=== PATIENT | female | born 1990 | race American Indian/Alaskan Native ===

== ENCOUNTER 2017-05-17 11:00 | Inpatient (IN) | payer BC, MEDICAID ==
[2017-05-17] MEDS ORDERED: INFUVITE 10 ML in D5LR 1,000 ML IV ONE ×2 (12:45→20:00)
[2017-05-17] MEDS ORDERED: LACTATED RINGERS 1,000 ML IV ONE (12:45)
[2017-05-17] MEDS ORDERED: PHENERGAN PR PRN (12:50)
[2017-05-17] MEDS: REGLAN IV SCH ×2 (13:27→19:38)
--- NOTE | 2017-05-17 14:13 | History and Physical Report ---
History of Present Illness Date of examination: 05/17/17 Date of admission: 05/17/17 11:35 History of present illness: 27 yo LMP EDC 01/02/17 @ 7.1 weeks presented to office for routine new patient visit and voiced experiencing severe nausea and vomiting for 3 weeks. Unable to tolerate any solids or liquids by mouth for 3 weeks. Experiencing vertigo and fatigue. Has tried OTC medications and natural remedies including peppermint, derek, and Benadryl without resolution or lapse in severity of symptoms. Triaged for above 05/12/17 @ [facility], given IV hydration and Reglan. Sent home with Reglan Prescription but medication did not relieve c/o. Given Rx for Zofran at previous OB, but after internet research on potential side effects, patient felt risk outweighed benefits of trying medication. Also voiced 7lb weight loss. 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 Social history: no significant social history, single, lives with family - Obstetrical History Expected Date of Delivery: 01/02/18 Actual Gestation: 7 Week(s) 1 Day(s) : 2 Para: 0 Induced : 1 Medications and Allergies Allergies Allergy/AdvReac Type Severity Reaction Status Date / Time hydrocodone Allergy Anaphylaxis Verified 10/13/15 23:28 Active Meds: Active Medications Multivitamins/Minerals 10 ml/ (Dextrose/Lactated Ringer's) 1,010 mls @ 125 mls/ hr IV DAILY ONE Stop: 05/17/17 20:49 Metoclopramide HCl (Reglan) 10 mg IV Q6H BERNIE Last Admin: 05/17/17 13:27 Dose: 10 mg Promethazine HCl (Phenergan) 25 mg [place] Q6H PRN PRN Reason: Nausea And Vomiting Review of Systems Constitutional: weight loss (7 lbs in 3 weeks), anorexia, fatigue, weakness, malaise, poor appetite Eyes: deferred Ears, nose, mouth and throat: deferred Breasts: normal Gastrointestinal: nausea, vomiting, loss of appetite, no abdominal pain Genitourinary: normal appearance, no vaginal bleeding, no vaginal discharge, no leakage of fluid, no dysuria, no pelvic pain, no genital sores Rectal Exam: deferred - Vital Signs Vital signs: Vital Signs Temp Pulse Resp BP Pulse Ox 98.9 F 93 H 18 127/72 100 05/17/17 12:00 05/17/17 12:00 05/17/17 12:00 05/17/17 12:00 05/17/17 12:00 Temp Pulse Resp BP Pulse Ox 98.9 F 93 H 18 127/72 100 05/17/17 12:00 05/17/17 12:00 05/17/17 12:00 05/17/17 12:00 05/17/17 12:00 - Physical Exam Breasts: Positive: normal Abdomen: Positive: normal appearance, soft. Negative: distention Genitourinary (Female): Positive: normal external genitalia, normal perenium Vagina: Positive: normal moisture - Obstetrical FHR comments: U/S 05/13/17 at [facility] documented at single viable IUP at 6.4 weeks. FHT's 118. No subchorionic hemorrhage noted. Results Result Diagrams: 05/17/17 13:22 All other labs normal. Assessment and Plan A: IUP at 7.1 weeks gestation Severe Hyperemesis P: Admit Hydration Antiemetic [facility] consult for reglan pump
[2017-05-17 14:35] LABS: Basophils % (Auto) 0.5 % (0.0-1.8); Eosinophils % (Auto) 0.2 % (0.0-4.3); Mean Corpuscular HGB Conc 30 % (30-34); Platelet Count 380 K/mm3 (140-440); Red Blood Count 4.61 M/mm3 (3.65-5.03); White Blood Count 8.7 K/mm3 (4.5-11.0)
[2017-05-17 14:40] LABS: Hematocrit 29.8 % (30.3-42.9); Hemoglobin 8.8 gm/dl (10.1-14.3); Mean Corpuscular Hemoglobin 19 pg (28-32); Mean Corpuscular Volume 65 fl (79-97); Red Cell Distribution Width 21.5 % (13.2-15.2)
[2017-05-17 15:23] LABS: HIV-1 Antigen p24 Non React (Non React); HIVR-1/2 Ab Non React (Non React)
[2017-05-17 16:54] LABS: Urine Drugs of Abuse Note Disclamer
[2017-05-17 17:05] LABS: Bilirubin,Urine NEG (Negative); Blood,Urine NEG (Negative); Ketones,Urine 80 mg/dL (Negative); Leukocyte Esterase,Urine TR (Negative); Mucus,Urine 3+ /HPF; Nitrite,Urine NEG (Negative); Urobilinogen,Urine < 2.0 mg/dL (<2.0)
[2017-05-17] MEDS: D5LR 1,000 ML IV SCH (23:45)
[2017-05-18] MEDS: REGLAN IV SCH ×3 (01:40→14:47)
[2017-05-18] MEDS: D5LR 1,000 ML IV SCH ×3 (07:35→15:45)
--- NOTE | 2017-05-18 09:06 | Progress Note ---
Assessment and Plan A/P HD#1 Hyperemesis Gravidarum CMP today continue antiemetics advance diet as tolerated Subjective - Subjective Date of service: 05/18/17 Principal diagnosis: Hyperemesis gravidarum Patient reports: no new complaints, no loss of fluid, no vaginal bleeding Objective - Vital Signs Vital Signs: Vital Signs - 12hr 05/18/17 05/18/17 05/18/17 00:55 04:15 08:35 Temperature 98.5 F 98.0 F 98.5 F Pulse Rate 87 76 68 Respiratory 19 18 18 Rate Blood Pressure 106/53 116/63 114/60 [Left] - Exam Breasts: deferred Cardiovascular: Regular rate, Normal S1 Lungs: Clear to auscultation, Normal air movement Abdomen: Present: normal appearance, soft, normal bowel sounds. Absent: distention Vulva: both: normal Uterus: Present: normal - Labs Labs: Abnormal Labs 05/17/17 13:22 Hgb 8.8 L Hct 29.8 L MCV 65 L MCH 19 L RDW 21.5 H Nicholas % (Auto) 7.7 H Seg Neutrophils % 73.7 H Laboratory Results - last 24 hr 05/17/17 05/17/17 05/17/17 13:22 13:22 13:22 WBC 8.7 RBC 4.61 Hgb 8.8 L Hct 29.8 L MCV 65 L MCH 19 L MCHC 30 RDW 21.5 H Plt Count 380 Lymph % (Auto) 17.9 Nicholas % (Auto) 7.7 H Eos % (Auto) 0.2 Baso % (Auto) 0.5 Lymph # 1.6 Nicholas # 0.7 Eos # 0.0 Baso # 0.0 Seg Neutrophils % 73.7 H Seg Neutrophils # 6.4 Sickle Cell Screen Negative Urine Color Urine Turbidity Urine pH Ur Specific [place] Urine Protein Urine Glucose (UA) Urine Ketones Urine Blood Urine Nitrite Urine Bilirubin Urine Urobilinogen Ur Leukocyte Esterase Urine WBC (Auto) Urine RBC (Auto) U Epithel Cells (Auto) Urine Mucus Urine Opiates Screen Urine Methadone Screen Ur Barbiturates Screen Ur Phencyclidine Scrn Ur Amphetamines Screen U Benzodiazepines Scrn Urine Cocaine Screen U Marijuana (THC) Screen Drugs of Abuse Note Hep Bs Antigen Non-reactive HIV 1&2 Antibody Rapid Non react HIV P24 Antigen Non react Rubella IgG Antibody Immune Blood Type Antibody Screen 05/17/17 05/17/17 05/17/17 13:24 16:30 16:30 WBC RBC Hgb Hct MCV MCH MCHC RDW Plt Count Lymph % (Auto) Nicholas % (Auto) Eos % (Auto) Baso % (Auto) Lymph # Nicholas # Eos # Baso # Seg Neutrophils % Seg Neutrophils # Sickle Cell Screen Urine Color Yellow Urine Turbidity Clear Urine pH 6.0 Ur Specific [place] 1.026 Urine Protein 30 mg/dl Urine Glucose (UA) Neg Urine Ketones 80 Urine Blood Neg Urine Nitrite Neg Urine Bilirubin Neg Urine Urobilinogen < 2.0 Ur Leukocyte Esterase Tr Urine WBC (Auto) 1.0 Urine RBC (Auto) 2.0 U Epithel Cells (Auto) 5.0 Urine Mucus 3+ Urine Opiates Screen Presumptive negative Urine Methadone Screen Presumptive negative Ur Barbiturates Screen Presumptive negative Ur Phencyclidine Scrn Presumptive negative Ur Amphetamines Screen Presumptive negative U Benzodiazepines Scrn Presumptive negative Urine Cocaine Screen Presumptive negative U Marijuana (THC) Screen Presumptive positive Drugs of Abuse Note Disclamer Hep Bs Antigen HIV 1&2 Antibody Rapid HIV P24 Antigen Rubella IgG Antibody Blood Type B POSITIVE Antibody Screen Negative 05/18/17 01:00 WBC RBC Hgb Hct MCV MCH MCHC RDW Plt Count Lymph % (Auto) Nicholas % (Auto) Eos % (Auto) Baso % (Auto) Lymph # Nicholas # Eos # Baso # Seg Neutrophils % Seg Neutrophils # Sickle Cell Screen Urine Color Urine Turbidity Urine pH Ur Specific [place] Urine Protein Urine Glucose (UA) Urine Ketones Neg Urine Blood Urine Nitrite Urine Bilirubin Urine Urobilinogen Ur Leukocyte Esterase Urine WBC (Auto) Urine RBC (Auto) U Epithel Cells (Auto) Urine Mucus Urine Opiates Screen Urine Methadone Screen Ur Barbiturates Screen Ur Phencyclidine Scrn Ur Amphetamines Screen U Benzodiazepines Scrn Urine Cocaine Screen U Marijuana (THC) Screen Drugs of Abuse Note Hep Bs Antigen HIV 1&2 Antibody Rapid HIV P24 Antigen Rubella IgG Antibody Blood Type Antibody Screen
[2017-05-18] MEDS ORDERED: REGLAN IV SCH (09:30)
[2017-05-18] MEDS ORDERED: ZOFRAN IV PRN (09:30)
[2017-05-18 09:46] LABS: Anion Gap 18 mmol/L; Blood Urea Nitrogen 3 mg/dL (7-17); Carbon Dioxide 21 mmol/L (22-30); Chloride 100.1 mmol/L (98-107); Glucose 168 mg/dL (65-100); Potassium 3.4 mmol/L (3.6-5.0); Sodium 136 mmol/L (137-145)
[2017-05-18] MEDS: PHENERGAN PR SCH ×2 (10:56→14:47)
[2017-05-18] MEDS: PRENATAL VITAMIN PO SCH (10:56)
[2017-05-18] MEDS: TYLENOL PO PRN ×2 (10:57→16:20)
--- NOTE | 2017-05-18 11:11 | Admit Criteria Form ---
Admission Criteria Documentation: HYPEREMESIS GRAVIDARUM Clinical Indications for Admission to Inpatient Care ([place]/check or initial the applicable condition/criteria) Admission is indicated for 1 or more of the following 1)(2)(3)(4)(5) [ ]I. Suspected serious gastrointestinal pathology (eg, acute fatty liver of , pancreatitis) as indicated by 1 or more of the following (6)(7): [ ]a) Significantly elevated serum transaminase or bilirubin (e.g., greater than 10 times normal) [ ]b) Significantly elevated bilirubin (eg greater than 4mg/dL (68 micromoles/L) [ ]c) Significantly elevated serum amylase or lipase (eg greater than 5 times normal) [ ]d) Elevated serum ammonia level [ ]e) Coagulopathy (e.g., elevated PT, PTT) [ ]f) Ascites [ ]g) Encephalopathy [X ]II. Inpatient admission required [A] rather than observation care (See use Hyperemesis Gravidarum: Observation Care as appropriate) because of 1 or more of the following (4)(5)(8): [ ]a) Hemodynamic instability [X ]b) Vomiting that is severe or persistent [ ]c) Dehydration that is severe or persistent [ ]d) Severe electrolyte abnormalities requiring inpatient care [ ]e) Metabolic disorder (e.g., hyperchloremic alkalosis) that is severe or persistent [ ]f) Acute renal failure [ ]g) Significant neurologic findings (e.g., ataxia, nysthagmus, Altered mental status that is severe or persistent) [ ]h) compromise identified [ ]i) Hydatidiformmole identified [ ]j) Other condition, treatment or monitoring requiring inpatient admission Extended stay beyond goal length of stay may be needed for(1)(20): [ ]a) Severe electrolyte disorder that persists [ ]b) Malnutrition(10) [ ]c) Acute fatty liver of (6)(7) [ ]d) Hydatidiform mole (2) [ ]e) Wernicke encephalopathy or other LEVEL DESIGNER complication (eg, osmotic demyelination syndrome)(2)(10)(21) [ ]f) compromise The original [employer] content created by [facility] [employer] [employer] has been revised. The portions of the content which have been revised are identified through the use of italic text or in bold, and [facility] has neither reviewed nor approved the modified material. All other unmodified content is copyright [facility]. Please see references footnoted in the original [facility] edition 2017 Admission Criteria Met: Yes
[2017-05-18] MEDS ORDERED: D5LR 1,000 ML IV SCH (12:00)
[2017-05-18] MEDS ORDERED: PHENERGAN PO SCH (17:00)
[2017-05-18] MEDS ORDERED: REGLAN PO SCH (17:00)
[2017-05-18] MEDS: REGLAN PO SCH (20:37)
[2017-05-18] MEDS: PHENERGAN PO SCH (20:37)
[2017-05-18] MEDS ORDERED: INFUVITE 10 ML in D5LR 1,000 ML IV ONE (21:00)
[2017-05-19] MEDS: REGLAN PO SCH ×2 (04:50→09:26)
[2017-05-19] MEDS: PHENERGAN PO SCH ×2 (04:50→09:29)
[2017-05-19] MEDS: PRENATAL VITAMIN PO SCH (09:28)
--- NOTE | 2017-05-19 13:34 | Progress Note ---
Assessment and Plan A: HD day #2 Hyperemesis P:D/C home Subjective - Subjective Date of service: 05/19/17 Principal diagnosis: Hyperemesis gravidarum Interval history: 27 yo LMP EDC 01/02/17 @ 7.1 weeks presented to office for routine new patient visit and voiced experiencing severe nausea and vomiting for 3 weeks. Unable to tolerate any solids or liquids by mouth for 3 weeks. Experiencing vertigo and fatigue. Has tried OTC medications and natural remedies including peppermint, derek, and Benadryl without resolution or lapse in severity of symptoms. Triaged for above 05/12/17 @ [facility], given IV hydration and Reglan. Sent home with Reglan Prescription but medication did not relieve c/o. Given Rx for Zofran at previous OB, but after internet research on potential side effects, patient felt risk outweighed benefits of trying medication. Also voiced 7lb weight loss. Patient reports: other (Tolerating diet with po Reglan), no new complaints, no loss of fluid, no vaginal bleeding Objective - Vital Signs Vital Signs: Vital Signs - 12hr 05/19/17 05/19/17 04:20 09:10 Temperature 98.2 F 98.9 F Pulse Rate 88 82 Respiratory 18 Rate Blood Pressure 115/66 114/66 [Right] - Labs Labs: Abnormal Labs 05/17/17 05/18/17 13:22 09:12 Hgb 8.8 L Hct 29.8 L MCV 65 L MCH 19 L RDW 21.5 H [place] % (Auto) 7.7 H Seg Neutrophils % 73.7 H Sodium 136 L Potassium 3.4 L Carbon Dioxide 21 L BUN 3 L Creatinine 0.4 L Glucose 168 H
--- NOTE | 2017-05-19 13:41 | Discharge Summary ---
Providers - Providers Date of Admission: 05/17/17 11:35 Date of discharge: 05/19/17 Attending physician: SAMMY DOW 05/17/17 12:53 Consult to Dietitian/Nutrition [CONS] Routine Physician Instructions: Reason For Exam: Reason for Consult: Diet education 05/17/17 12:54 Consult to Case Management [CONS] Routine Services Needed at Discharge: Home Health Services Notified:: manny Phone number called:: [phone] Additional Physician Instructions: home health for home reglan pump 7 wks Primary care physician: PRODUCTION MAINTENANCE MECHANIC Hospitalization Reason for admission: other (7+ weeks hyperemesis) Condition at discharge: Good Disposition: DC-30 STILL A PATIENT Plan - Discharge Medications Prescriptions: Metoclopramide [Reglan TAB] 10 mg PO Q6H PRN #60 tablet PRN Reason: nausea and vomiting - Provider Discharge Summary Activity: routine, no sex for 6 weeks, no heavy lifting 4 weeks, no strenuous exercise Additional instructions: [] Smoking cessation referral if applicable(refer to patient education folder for contact #) [] Refer to [facility]'s [facility] Booklet Call your doctor immediately for: * Fever > 100.5 * Heavy vaginal bleeding ( >1 pad per hour) * Severe persistent headache * Shortness of breath * Reddened, hot, painful area to leg or breast * Drainage or odor from incision. * Keep incision clean and dry at all times and follow doctor's instructions regarding bathing/showering - Follow up plan Follow up: PRIMARY CARE,MD [Primary Care Provider] - LYNSEY FORMAN CNM [Advanced Practice Nurse] - 14 Days Forms: [facility] Discharge Summary
[2017-05-19 14:00] VITALS: BP 112/61
[2017-05-19] MEDS ORDERED: TRANSDERM-SCOP TD SCH (15:00)
== END 2017-05-19 15:10 | disposition home or self-care (01) | DRG 781 ==
LOC: 3A 11:00 → UNDOADMIN 11:00 → OB 11:35
PROVIDERS: ADMIT Obstetrics & Gynecology; ATTEND Obstetrics & Gynecology
DX: O21.1 Hyperemesis gravidarum with metabolic disturbance (principal); Z3A.01 Less than 8 weeks gestation of pregnancy; Z88.5 Allergy status to narcotic agent
CPT/HCPCS: 36415; 80048; 80307; 81001; 82010; 85025; 85660; 86706; 86762; 86850; 86900; 86901; 87806; J2765; J7120; J7121; Q0169

== ENCOUNTER 2017-06-16 13:19 | Inpatient (IN) | payer BC, MEDICAID ==
[2017-06-16] MEDS ORDERED: ZOFRAN IV PRN (14:12)
[2017-06-16 16:41] LABS: Anion Gap 17 mmol/L; BUN/Creatinine Ratio 8; Blood Urea Nitrogen 3 mg/dL (7-17); Calcium 9.8 mg/dL (8.4-10.2); Carbon Dioxide 23 mmol/L (22-30); Chloride 96.2 mmol/L (98-107); Glucose 124 mg/dL (65-100); Potassium 3.6 mmol/L (3.6-5.0); Sodium 133 mmol/L (137-145)
[2017-06-16 16:42] LABS: Amylase 86 units/L (27-131); Lipase 29 units/L (13-60)
[2017-06-16] MEDS: D5LR 1,000 ML IV SCH ×2 (16:51→18:54)
[2017-06-16] MEDS: REGLAN IV SCH ×2 (17:46→23:21)
[2017-06-16] MEDS ORDERED: PHENERGAN PR SCH (18:00)
[2017-06-16 19:22] LABS: Bilirubin,Urine NEG (Negative); Blood,Urine NEG (Negative); Ketones,Urine 80 mg/dL (Negative); Leukocyte Esterase,Urine LG (Negative); Mucus,Urine 3+ /HPF; Nitrite,Urine NEG (Negative); Urobilinogen,Urine < 2.0 mg/dL (<2.0)
[2017-06-17] MEDS: D5LR 1,000 ML IV SCH ×2 (01:41→08:12)
[2017-06-17] MEDS: REGLAN IV SCH ×2 (05:36→12:21)
--- NOTE | 2017-06-17 07:53 | History and Physical Report ---
History of Present Illness Date of examination: 06/16/17 Date of admission: 06/16/17 15:20 Chief complaint: nausea, vomiting, fatigue History of present illness: Pt is a 27 year old -[place] female RENAE 01/02/18 at 11w3d from the office with nausea, fatigue and ketonuria. She has had one previous admission for hyperemesis and has been taking PO Reglan at home. She is receiving care at [facility]. She denies vaginal bleeding. She has lost a total of 9 pounds since the beginning of the . 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 Family/Genetic History: diabetes, heart disease, hypertension Social history: no significant social history - Obstetrical History Expected Date of Delivery: 01/02/18 Actual Gestation: 11 Week(s) 4 Day(s) : 2 Para: 0 Hx # Term Pregnancies: 0 Number of Pregnancies: 0 Spontaneous Abortions: 1 Induced : 0 Medications and Allergies Allergies Allergy/AdvReac Type Severity Reaction Status Date / Time hydrocodone Allergy Anaphylaxis Verified 10/13/15 23:28 Home Medications Medication Instructions Recorded Confirmed Last Taken Type Doxylamine Succinate/Vit B6 2 tab PO QHS PRN 05/17/17 05/17/17 05/15/17 History [Galen Vogel 10-10 mg Tablet] Pnv No.103/Folic/Om3s/Fish Oil 2 each PO QDAY 05/17/17 06/16/17 Unknown History [ Gummies] Metoclopramide [Reglan TAB] 10 mg PO Q6H PRN #60 tablet 05/19/17 06/16/17 Unknown Rx Metoclopramide [Reglan] 10 mg PO Q6H PRN #60 tab 06/17/17 Unknown Rx Active Meds: Active Medications Dextrose/Lactated Ringer's (D5lr) 1,000 mls @ 500 mls/hr IV DIRECT BERNIE Stop: 06/17/17 17:59 Last Admin: 06/17/17 01:41 Dose: 500 mls/hr Dextrose/Lactated Ringer's (D5lr) 1,000 mls @ 150 mls/hr IV DIRECT BERNIE Last Admin: 06/16/17 18:54 Dose: 150 mls/hr Methylprednisolone Sodium Succinate (Solu-Medrol) 100 mg IV Q8H [facility] Last Admin: 06/17/17 04:25 Dose: 100 mg Metoclopramide HCl (Reglan) 10 mg IV Q6H [facility] Last Admin: 06/17/17 05:36 Dose: 10 mg Multivitamins/Iron/Calcium ( Vitamin) 1 each PO QDAY [facility] Ondansetron HCl (Zofran) 4 mg IV Q6H PRN PRN Reason: N/V unrelieved by Reglan Promethazine HCl (Phenergan) 25 mg [place] Q6HR [facility] Last Admin: 06/16/17 18:04 Dose: Not Given Review of Systems All systems: negative - Vital Signs Vital signs: Vital Signs Temp Pulse Resp BP 98.8 F 88 18 116/70 06/16/17 16:03 06/16/17 16:03 06/16/17 16:03 06/16/17 16:03 Temp Pulse Resp BP Pulse Ox 98.8 F 93 H 18 116/55 06/17/17 04:45 06/17/17 04:45 06/17/17 04:45 06/17/17 04:45 - Physical Exam Breasts: Positive: deferred Cardiovascular: Regular rate Lungs: Positive: Clear to auscultation Abdomen: Positive: soft Extremities: Positive: normal Results Result Diagrams: 06/16/17 16:19 Abnormal lab results 06/16/17 06/16/17 06/16/17 Range/Units 16:19 16:19 18:00 Sodium 133 L (137-145) mmol/L Chloride 96.2 L (98-107) mmol/L BUN 3 L (7-17) mg/dL Creatinine 0.4 L (0.7-1.2) mg/dL Glucose 124 H (65-100) mg/dL TSH 0.026 L (0.270-4.200) mlU/mL Urine WBC (Auto) 7.0 H (0.0-6.0) /HPF U Epithel Cells (Auto) 28.0 H (0-13.0) /HPF All other labs normal. Assessment and Plan A: IUP at 11w3d Hyperemsis P: Admit for observation IV antiemetics IV steroids Closely monitor clinical status
--- NOTE | 2017-06-17 07:54 | Progress Note ---
Assessment and Plan A: IUP at 11w4d Hyperemesis- improved clinically P: Discharge today with PO Reglan and follow up in the office next week. Subjective - Subjective Date of service: 06/17/17 Principal diagnosis: Hyperemesis , IUP at 11 wks Interval history: Pt reports feeling much better. She asks to go home today. Patient reports: no new complaints, no loss of fluid, no vaginal bleeding, no contractions Objective - Vital Signs Vital Signs: Vital Signs - 12hr 06/17/17 06/17/17 01:05 04:45 Temperature 99.1 F 98.8 F Pulse Rate 98 H 93 H Respiratory 20 18 Rate Blood Pressure 113/64 116/55 [Left] - Exam Breasts: deferred Cardiovascular: Regular rate Lungs: Clear to auscultation Abdomen: Present: soft Extremities: normal - Labs Labs: Abnormal Labs 06/16/17 06/16/17 06/16/17 16:19 16:19 18:00 Sodium 133 L Chloride 96.2 L BUN 3 L Creatinine 0.4 L Glucose 124 H TSH 0.026 L Urine WBC (Auto) 7.0 H U Epithel Cells (Auto) 28.0 H Laboratory Results - last 24 hr 06/16/17 06/16/17 06/16/17 16:19 16:19 16:19 Sodium 133 L Potassium 3.6 Chloride 96.2 L Carbon Dioxide 23 Anion Gap 17 BUN 3 L Creatinine 0.4 L Estimated GFR > 60 BUN/Creatinine Ratio 8 Glucose 124 H Calcium 9.8 Amylase 86 Lipase 29 TSH 0.026 L Urine Color Urine Turbidity Urine pH Ur Specific [place] Urine Protein Urine Glucose (UA) Urine Ketones Urine Blood Urine Nitrite Urine Bilirubin Urine Urobilinogen Ur Leukocyte Esterase Urine WBC (Auto) Urine RBC (Auto) U Epithel Cells (Auto) Urine Mucus 06/16/17 06/16/17 18:00 18:00 Sodium Potassium Chloride Carbon Dioxide Anion Gap BUN Creatinine Estimated GFR BUN/Creatinine Ratio Glucose Calcium Amylase Lipase TSH Urine Color Yellow Urine Turbidity Clear Urine pH 6.0 Ur Specific [place] 1.020 Urine Protein 30 mg/dl Urine Glucose (UA) 50 Urine Ketones 80 80 Urine Blood Neg Urine Nitrite Neg Urine Bilirubin Neg Urine Urobilinogen < 2.0 Ur Leukocyte Esterase Lg Urine WBC (Auto) 7.0 H Urine RBC (Auto) 2.0 U Epithel Cells (Auto) 28.0 H Urine Mucus 3+
[2017-06-17] MEDS ORDERED: PRENATAL VITAMIN PO SCH (10:00)
[2017-06-17 10:41] LABS: Bilirubin,Urine NEG (Negative); Blood,Urine NEG (Negative); Ketones,Urine NEG (Negative); Leukocyte Esterase,Urine NEG (Negative); Nitrite,Urine NEG (Negative); Protein,Urine <15 mg/dL mg/dL (Negative); Urobilinogen,Urine < 2.0 mg/dL (<2.0)
[2017-06-17] MEDS: REGLAN PO SCH ×2 (12:43→19:15)
--- NOTE | 2017-06-17 15:07 | Discharge Summary ---
Providers - Providers Date of Admission: 06/16/17 15:20 Date of discharge: 06/17/17 Attending physician: SAMMY DOW Primary care physician: SAMMY DOW Hospitalization Reason for admission: other (Hyperemesis, IUP at 11 wks ) Hospital course: Pt was admitted for treatment of hyperemesis with IV fluids and IV antiemetics. Pt met discharge criteria on hospital day #1. She will follow up in the office next week. Condition at discharge: Stable Disposition: DC-01 TO HOME OR SELFCARE - Discharge Diagnoses (1) Hyperemesis affecting , antepartum Status: Acute (2) Status: Acute Qualifiers: Weeks of gestation: 11 weeks Qualified Code(s): Z3A.11 - 11 weeks gestation of Plan - Discharge Medications Prescriptions: Metoclopramide [Reglan] 10 mg PO Q6H PRN #60 tab PRN Reason: Nausea - Provider Discharge Summary Activity: routine Diet: routine Instructions: routine Additional instructions: [] Smoking cessation referral if applicable(refer to patient education folder for contact #) [] Refer to [facility] Booklet Call your doctor immediately for: * Fever > 100.5 * Heavy vaginal bleeding ( >1 pad per hour) * Severe persistent headache * Shortness of breath * Reddened, hot, painful area to leg or breast * Drainage or odor from incision. * Keep incision clean and dry at all times and follow doctor's instructions regarding bathing/showering - Follow up plan Follow up: LYNSEY FORMAN CNM [Advanced Practice Nurse] - 06/21/17 (Please call for an appt )
[2017-06-17 17:26] VITALS: BP 104/68
== END 2017-06-17 21:00 | disposition home or self-care (01) | DRG 781 ==
LOC: 3A 13:19 → UNDOADMIN 13:19 → OB 15:20
PROVIDERS: ADMIT Obstetrics & Gynecology; ATTEND Obstetrics & Gynecology
DX: O21.0 Mild hyperemesis gravidarum (principal); Z83.3 Family history of diabetes mellitus; Z82.49 Family history of ischemic heart disease and other diseases of the circulatory system; Z3A.11 11 weeks gestation of pregnancy; Z88.5 Allergy status to narcotic agent
CPT/HCPCS: 36415; 80048; 81001; 82010; 82150; 83690; 84443; J2765; J2930; J7121

== ENCOUNTER 2017-08-02 14:37 | Emergency (ER) | payer BC, MEDICAID ==
--- NOTE | 2017-08-02 15:20 | Emergency Department Report ---
Chief Complaint: OB/Uterine Contractions Stated Complaint: LOWER ABDOMINAL PAIN - HPI History of Present Illness: This is a 27-year-old female nontoxic, well nourished in appearance, no acute signs of distress presents to the ED with c/o of lower pelvic and left-sided abdominal cramping 1 day. Patient states she is currently 18 weeks and follows up with a PCB DESIGNER with normal exam. Patient denies any vaginal bleeding, dysuria, polyuria, hematuria, fever, chills, nausea or vomiting or chest pain. - Exam Vital Signs: Vital Signs 08/02/17 14:52 Temperature 98.7 F Pulse Rate 113 H Respiratory 18 Rate Blood Pressure 111/64 O2 Sat by Pulse 98 Oximetry Physical Exam: GENERAL: The patient is a well-developed, well-nourished female in no apparent distress. Patient is alert and acting appropriately for age. Alert and oriented 3, no apparent distress, normal gait, atraumatic. ABDOMEN: Left lower pelvic tenderness. Soft and nondistended. Positive bowel sounds. No hepatosplenomegaly was noted. No guarding or rebound tenderness, negative epigastric bruit. Negative psoas sign, negative lujan sign, negative McBurneys sign MSE screening note: Focused history and physical exam performed. Due to findings the following was ordered: 1- This initial assessment/diagnostic orders/clinical plan/ treatment(s) is/are subject to change based on pt's health status, clinical progression and re- assessment by fellow clinical providers in the ED. Further treatment and workup at subsequent clinical provers discretion. Patient/guardians urged not to elope from ED as their condition may be serious if not clinically assessed and managed. 2-UA, CBC, BMP, quantitative serum 3-ultrasound OB and transvaginal 4- type and screen ED Disposition for MSE Condition: Stable
[2017-08-02 15:42] LABS: Hematocrit 25.9 % (30.3-42.9); Mean Corpuscular HGB Conc 31 % (30-34); Platelet Count 289 K/mm3 (140-440); Red Blood Count 3.75 M/mm3 (3.65-5.03); White Blood Count 11.3 K/mm3 (4.5-11.0)
[2017-08-02 15:44] LABS: Mean Corpuscular Hemoglobin 22 pg (28-32); Mean Corpuscular Volume 69 fl (79-97); Red Cell Distribution Width 25.3 % (13.2-15.2)
[2017-08-02 16:01] LABS: Anion Gap 20 mmol/L; BUN/Creatinine Ratio 18; Blood Urea Nitrogen 7 mg/dL (7-17); Calcium 9.2 mg/dL (8.4-10.2); Carbon Dioxide 23 mmol/L (22-30); Chloride 94.6 mmol/L (98-107); Glucose 130 mg/dL (65-100); Potassium 3.8 mmol/L (3.6-5.0); Sodium 134 mmol/L (137-145)
[2017-08-02 16:21] LABS: Basophils % (Manual) 0 % (0.0-1.8); Blastocytes % (Manual) 0 %; Eosinophils % (Manual) 0 % (0.0-4.3)
[2017-08-02 16:22] LABS: Anisocytosis 2+; Elliptocytes Rare; Ovalocytes Rare
[2017-08-02 16:23] LABS: Diff Status Complete; Microcytosis 1+; Tear Drop Cells Rare
--- NOTE | 2017-08-02 18:17 | Ultrasound Report ---
FINAL REPORT PROCEDURE: US OB > = 14 WEEKS FETUS TECHNIQUE: Real-time limited sonographic examination was performed for evaluation of size, position, heartbeat, fluid volume for each fetus with image documentation (1 or more fetuses). CPT 06819 HISTORY: abd pain 18 weeks COMPARISON: No prior studies are available for comparison. FINDINGS: MATERNAL Uterus: 2 rounded heterogeneous mural masses are noted, likely related to fibroids. There is 1 posteriorly which measures 5.5 x 5.9 x 5.8 centimeters. There is 1 anteriorly which measures 3.8 x 2.6 x 3.2 centimeters. Cervix length: Transabdominal measurement is 3.4 cm. Internal Os: Closed . FETUS IUP: Single living intrauterine . Position: Breech at the time of the scan. Placental position: Anterior and grade 0, without previa . Amniotic fluid volume: Within normal limits. Deepest vertical pocket measures 4.1 centimeters. Heart rate and rhythm: 152 BPM, Regular . anatomic survey: Not performed. MEASUREMENTS BPD: 4.2 centimeters, 18 weeks 5 days. HC: 14.9 centimeters, 18 weeks 0 days. AC: 12.8 centimeters, 18 weeks 3 days. FL: 2.6 centimeters, 17 weeks 6 days. Mean Gestational Age (composite criteria): 18 weeks 2 days. Ratio biometry: Normal . Estimated Weight: 225 grams. Estimated Due Date (earliest scan): 01/01/2018. IMPRESSION: 1. Single living intrauterine gestation at approximately 18 weeks 2 days. 2. EDC by US 01/01/2018. Uterine fibroids are present, as described above.
[2017-08-03 01:42] LABS: Bilirubin,Urine NEG (Negative); Blood,Urine NEG (Negative); Ketones,Urine NEG (Negative); Leukocyte Esterase,Urine TR (Negative); Mucus,Urine FEW /HPF; Nitrite,Urine NEG (Negative); Protein,Urine <15 mg/dL mg/dL (Negative); Urobilinogen,Urine < 2.0 mg/dL (<2.0)
[2017-08-03] MEDS ORDERED: TYLENOL PO ONE (02:27)
--- NOTE | 2017-08-03 02:28 | Emergency Department Report ---
ED General Adult HPI - General Chief complaint: OB/Uterine Contractions Stated complaint: LOWER ABDOMINAL PAIN Time Seen by Provider: 08/03/17 02:15 Source: patient, RN notes reviewed, old records reviewed Mode of arrival: Ambulatory Limitations: No Limitations - History of Present Illness Initial comments: This is a 27-year-old female who was previously unknown to this provider. She is 1, para 0. 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 Dow. She presents to the ER with suprapubic and bilateral lower quadrant abdominal pain and cramping. The patient has been present for one week. It is intermittent. It increases with palpation, range of motion, decreases with rest. It worsens when she doesn't urinate, and decreases when she urinates. No fevers or chills, no recent nausea or vomiting, no chest pain or shortness of breath, patient defecating normally, no recent trauma. -: Gradual, days(s), week(s) (1) Location: abdomen, pelvis Radiation: non-radiation Quality: aching Consistency: intermittent Improves with: rest Worsens with: movement Associated Symptoms: denies: confusion, chest pain, cough, diaphoresis, fever/ chills, headaches, loss of appetite, malaise, nausea/vomiting, shortness of breath, syncope, weakness - Related Data Home Medications Medication Instructions Recorded Confirmed Last Taken Doxylamine Succinate/Vit B6 2 tab PO QHS PRN 05/17/17 05/17/17 05/15/17 [Galen Vogel 10-10 mg Tablet] Pnv No.103/Folic/Om3s/Fish Oil 2 each PO QDAY 05/17/17 06/16/17 Unknown [ Gummies] Previous Rx's Medication Instructions Recorded Last Taken Type Metoclopramide [Reglan TAB] 10 mg PO Q6H PRN #60 tablet 05/19/17 Unknown Rx Metoclopramide [Reglan] 10 mg PO Q6H PRN #60 tab 06/17/17 Unknown Rx Acetaminophen [Tylenol Arthritis] 650 mg PO Q6HR PRN #30 tablet.er 08/03/17 Unknown Rx Allergies Allergy/AdvReac Type Severity Reaction Status Date / Time hydrocodone Allergy Intermediate Itching Verified 08/02/17 14:52 ED Review of Systems ROS: Stated complaint: LOWER ABDOMINAL PAIN Other details as noted in HPI ED Past Medical Hx - Past Medical History Previous Medical History?: Yes Hx Congestive Heart Failure: No Hx Diabetes: No Hx Sickle Cell Disease: No Hx Asthma: No Hx COPD: No Hx HIV: No - Surgical History Past Surgical History?: No - Social History Smoking Status: Never Smoker Substance Use Type: None - Medications Home Medications: Home Medications Medication Instructions Recorded Confirmed Last Taken Type Doxylamine Succinate/Vit B6 2 tab PO QHS PRN 05/17/17 05/17/17 05/15/17 History [Diclegis Dr 10-10 mg Tablet] Pnv No.103/Folic/Om3s/Fish Oil 2 each PO QDAY 05/17/17 06/16/17 Unknown History [ Gummies] Metoclopramide [Reglan TAB] 10 mg PO Q6H PRN #60 tablet 05/19/17 06/16/17 Unknown Rx Metoclopramide [Reglan] 10 mg PO Q6H PRN #60 tab 06/17/17 Unknown Rx Acetaminophen [Tylenol Arthritis] 650 mg PO Q6HR PRN #30 tablet.er 08/03/17 Unknown Rx ED Physical Exam - General Limitations: No Limitations General appearance: alert, in no apparent distress - Head Head exam: Present: atraumatic, normocephalic - Eye Eye exam: Present: normal appearance, EOMI. Absent: conjunctival injection, nystagmus - ENT ENT exam: Present: normal exam, normal orophraynx, mucous membranes moist, normal external ear exam - Neck Neck exam: Present: normal inspection, full ROM - Respiratory Respiratory exam: Present: normal lung sounds bilaterally. Absent: respiratory distress, chest wall tenderness - Cardiovascular Cardiovascular Exam: Present: regular rate, normal rhythm, normal heart sounds. Absent: irregular rhythm, systolic murmur, diastolic murmur, rubs, gallop - GI/Abdominal GI/Abdominal exam: Present: soft, tenderness (there is suprapubic and bilateral lower quadrant tenderness. No rebound, guarding or peritoneal signs. The uterus is appropriate for dates.), normal bowel sounds. Absent: distended, guarding, rebound, rigid - Extremities Exam Extremities exam: Present: normal inspection, full ROM, normal capillary refill. Absent: pedal edema, joint swelling, calf tenderness - Back Exam Back exam: Present: normal inspection, full ROM. Absent: tenderness, CVA tenderness (R), paraspinal tenderness, vertebral tenderness - Neurological Exam Neurological exam: Present: alert, oriented X3, normal gait, other (Extraocular movements intact. Tongue midline. No facial droop. Facial sensation intact to light touch in the V1, V2, V3 distribution bilaterally. 5 and 5 strength in 4 extremities.. Sensation is intact to light touch in 4 extremities.). Absent : motor sensory deficit - Psychiatric Psychiatric exam: Present: anxious - Skin Skin exam: Present: warm, dry, intact, normal color. Absent: rash ED Course Vital Signs 08/02/17 08/03/17 14:52 01:19 Temperature 98.7 F 98.5 F Pulse Rate 113 H 88 Respiratory 18 16 Rate Blood Pressure 111/64 Blood Pressure 109/64 [Right] O2 Sat by Pulse 98 Oximetry - Reevaluation(s) Reevaluation #1: 08/03/17 02:48 Given that pain has been present for over 1 week and is intermittent, I think appendicitis is very unlikely. ED Medical Decision Making - Lab Data Result diagrams: 08/02/17 15:22 08/02/17 15:22 Vital Signs 08/02/17 08/03/17 14:52 01:19 Temperature 98.7 F 98.5 F Pulse Rate 113 H 88 Respiratory 18 16 Rate Blood Pressure 111/64 Blood Pressure 109/64 [Right] O2 Sat by Pulse 98 Oximetry Lab Results 08/02/17 08/02/17 08/02/17 Range/Units 15:22 15:22 15:22 WBC 11.3 H (4.5-11.0) K/mm3 RBC 3.75 (3.65-5.03) M/mm3 Hgb 8.0 L (10.1-14.3) gm/dl Hct 25.9 L (30.3-42.9) % MCV 69 L (79-97) fl MCH 22 L (28-32) pg MCHC 31 (30-34) % RDW 25.3 H (13.2-15.2) % Plt Count 289 (140-440) K/mm3 Add Manual Diff Complete Total Counted 100 Seg Neuts % (Manual) 74.0 H (40.0-70.0) % Band Neutrophils % 0 % Lymphocytes % (Manual) 21.0 (13.4-35.0) % Reactive Lymphs % (Man) 0 % Monocytes % (Manual) 5.0 (0.0-7.3) % Eosinophils % (Manual) 0 (0.0-4.3) % Basophils % (Manual) 0 (0.0-1.8) % Metamyelocytes % 0 % Myelocytes % 0 % Promyelocytes % 0 % Blast Cells % 0 % Nucleated RBC % Not Reportable Seg Neutrophils # Man 8.4 H (1.8-7.7) K/mm3 Band Neutrophils # 0.0 K/mm3 Lymphocytes # (Manual) 2.4 (1.2-5.4) K/mm3 Abs React Lymphs (Man) 0.0 K/mm3 Monocytes # (Manual) 0.6 (0.0-0.8) K/mm3 Eosinophils # (Manual) 0.0 (0.0-0.4) K/mm3 Basophils # (Manual) 0.0 (0.0-0.1) K/mm3 Metamyelocytes # 0.0 K/mm3 Myelocytes # 0.0 K/mm3 Promyelocytes # 0.0 K/mm3 Blast Cells # 0.0 K/mm3 WBC Morphology Not Reportable Hypersegmented Neuts Not Reportable Hyposegmented Neuts Not Reportable Hypogranular Neuts Not Reportable Smudge Cells Not Reportable Toxic Granulation Not Reportable Toxic Vacuolation Not Reportable Dohle Bodies Not Reportable Pelger-Huet Anomaly Not Reportable Marcus Rods Not Reportable Platelet Estimate Appears normal Clumped Platelets Not Reportable Plt Clumps, EDTA Not Reportable Large Platelets Not Reportable Giant Platelets Not Reportable Platelet Satelliting Not Reportable Plt Morphology Comment Not Reportable RBC Morphology Not Reportable Dimorphic RBCs Not Reportable Polychromasia Not Reportable Hypochromasia Not Reportable Poikilocytosis Not Reportable Anisocytosis 2+ Microcytosis 1+ Macrocytosis Not Reportable Spherocytes Not Reportable Pappenheimer Bodies Not Reportable Sickle Cells Not Reportable Target Cells Not Reportable Tear Drop Cells Rare Ovalocytes Rare Helmet Cells Not Reportable [place] Bodies Not Reportable [place] Rings Not Reportable Jeannette Cells Not Reportable Bite Cells Not Reportable Crenated Cell Not Reportable Elliptocytes Rare Acanthocytes (Spur) Not Reportable Rouleaux Not Reportable Hemoglobin C Crystals Not Reportable Schistocytes Not Reportable Malaria parasites Not Reportable Marco A Bodies Not Reportable Hem Pathologist Commnt No Sodium 134 L (137-145) mmol/L Potassium 3.8 (3.6-5.0) mmol/L Chloride 94.6 L (98-107) mmol/L Carbon Dioxide 23 (22-30) mmol/L Anion Gap 20 mmol/L BUN 7 (7-17) mg/dL Creatinine 0.4 L (0.7-1.2) mg/dL Estimated GFR > 60 ml/min BUN/Creatinine Ratio 18 % Glucose 130 H (65-100) mg/dL Calcium 9.2 (8.4-10.2) mg/dL HCG, Quant 57456 H (0-4) mIU/mL Urine Color (Yellow) Urine Turbidity (Clear) Urine pH (5.0-7.0) Ur Specific [place] (1.003-1.030) Urine Protein (Negative) mg/dL Urine Glucose (UA) (Negative) mg/dL Urine Ketones (Negative) mg/dL Urine Blood (Negative) Urine Nitrite (Negative) Urine Bilirubin (Negative) Urine Urobilinogen (<2.0) mg/dL Ur Leukocyte Esterase (Negative) Urine WBC (Auto) (0.0-6.0) /HPF Urine RBC (Auto) (0.0-6.0) /HPF U Epithel Cells (Auto) (0-13.0) /HPF Urine Mucus /HPF Blood Type Antibody Screen 08/02/17 08/02/17 Range/Units 15:27 Unknown WBC (4.5-11.0) K/mm3 RBC (3.65-5.03) M/mm3 Hgb (10.1-14.3) gm/dl Hct (30.3-42.9) % MCV (79-97) fl MCH (28-32) pg MCHC (30-34) % RDW (13.2-15.2) % Plt Count (140-440) K/mm3 Add Manual Diff Total Counted Seg Neuts % (Manual) (40.0-70.0) % Band Neutrophils % % Lymphocytes % (Manual) (13.4-35.0) % Reactive Lymphs % (Man) % Monocytes % (Manual) (0.0-7.3) % Eosinophils % (Manual) (0.0-4.3) % Basophils % (Manual) (0.0-1.8) % Metamyelocytes % % Myelocytes % % Promyelocytes % % Blast Cells % % Nucleated RBC % Seg Neutrophils # Man (1.8-7.7) K/mm3 Band Neutrophils # K/mm3 Lymphocytes # (Manual) (1.2-5.4) K/mm3 Abs React Lymphs (Man) K/mm3 Monocytes # (Manual) (0.0-0.8) K/mm3 Eosinophils # (Manual) (0.0-0.4) K/mm3 Basophils # (Manual) (0.0-0.1) K/mm3 Metamyelocytes # K/mm3 Myelocytes # K/mm3 Promyelocytes # K/mm3 Blast Cells # K/mm3 WBC Morphology Hypersegmented Neuts Hyposegmented Neuts Hypogranular Neuts Smudge Cells Toxic Granulation Toxic Vacuolation Dohle Bodies Pelger-Huet Anomaly Marcus Rods Platelet Estimate Clumped Platelets Plt Clumps, EDTA Large Platelets Giant Platelets Platelet Satelliting Plt Morphology Comment RBC Morphology Dimorphic RBCs Polychromasia Hypochromasia Poikilocytosis Anisocytosis Microcytosis Macrocytosis Spherocytes Pappenheimer Bodies Sickle Cells Target Cells Tear Drop Cells Ovalocytes Helmet Cells [place] Bodies [place] Rings Lamar Cells Bite Cells Crenated Cell Elliptocytes Acanthocytes (Spur) Rouleaux Hemoglobin C Crystals Schistocytes Malaria parasites Marco A Bodies Hem Pathologist Commnt Sodium (137-145) mmol/L Potassium (3.6-5.0) mmol/L Chloride (98-107) mmol/L Carbon Dioxide (22-30) mmol/L Anion Gap mmol/L BUN (7-17) mg/dL Creatinine (0.7-1.2) mg/dL Estimated GFR ml/min BUN/Creatinine Ratio % Glucose (65-100) mg/dL Calcium (8.4-10.2) mg/dL HCG, Quant (0-4) mIU/mL Urine Color Yellow (Yellow) Urine Turbidity Clear (Clear) Urine pH 6.0 (5.0-7.0) Ur Specific [place] 1.018 (1.003-1.030) Urine Protein <15 mg/dl (Negative) mg/dL Urine Glucose (UA) Neg (Negative) mg/dL Urine Ketones Neg (Negative) mg/dL Urine Blood Neg (Negative) Urine Nitrite Neg (Negative) Urine Bilirubin Neg (Negative) Urine Urobilinogen < 2.0 (<2.0) mg/dL Ur Leukocyte Esterase Tr (Negative) Urine WBC (Auto) 1.0 (0.0-6.0) /HPF Urine RBC (Auto) 1.0 (0.0-6.0) /HPF U Epithel Cells (Auto) 3.0 (0-13.0) /HPF Urine Mucus Few /HPF Blood Type B POSITIVE Antibody Screen Negative - Radiology Data Radiology results: report reviewed, image reviewed Obstetrics ultrasound demonstrates intrauterine , 18 weeks, 2 days, multiple fibroids, no obvious bleed. - Medical Decision Making Differential diagnosis, including but not limited to: Fibroids, urinary tract infection, round ligament pain, placental abruption, placenta previa Assessment and plan: 27-year-old female 18 weeks with intermittent lower abdominal pain for one week. There is no migration of pain, no fever, chills, vomiting, leukocytosis, her ultrasound demonstrates fibroids, her symptoms are associated with urination, therefore I think appendicitis is very unlikely. Patient felt improved with acetaminophen. Her abdomen was soft on repeat examination, she is able to tolerate liquid feeds and she is clinically well- appearing. The patient may be managed expectantly at this time, she is provided reassurance and counseled to follow up with her outpatient bottom loader. Return precautions are reviewed. Critical care attestation.: If time is entered above; I have spent that time in minutes in the direct care of this critically ill patient, excluding procedure time. ED Disposition Clinical Impression: Lower abdominal pain Disposition: TO HOME OR SELFCARE Is pt being admited?: No Does the pt Need Aspirin: No Condition: Stable Instructions: Uterine Fibroids (ED) Additional Instructions: Take the pain medication as directed. Continue current outpatient medications. Follow up with your bottom loader within the next 5-7 days. Rest and avoid heavy lifting and strenuous physical activity. Return to the ER right away with new pain, worsening pain, migration of pain, fevers, chills, lethargy, irritability, persistent vomiting, change in mental status, inability to tolerate liquid feeds. Referrals: JOSLYN BAINS MD [Primary Care Provider] - 3-5 Days SAMMY DOW MD [Staff Physician] - 3-5 Days
[2017-08-03 03:22] VITALS: BP 129/75
== END 2017-08-03 03:22 | disposition home or self-care (01) ==
LOC: ED 14:37
DX: O26.892 Other specified pregnancy related conditions, second trimester (principal); R10.31 Right lower quadrant pain; R10.32 Left lower quadrant pain; Z3A.18 18 weeks gestation of pregnancy
CPT/HCPCS: 36415; 76805; 80048; 81001; 84702; 85007; 85025; 86850; 86900; 86901

== ENCOUNTER 2018-05-24 14:04 | Emergency (ER) | payer OTHER, BC ==
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
[2018-05-24 20:39] LABS: HCG Qualitative,Urine Negative (Negative)
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
[2018-05-24 23:30] VITALS: BP 140/76
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
[2018-05-24] MEDS ORDERED: TORADOL IM ONE (23:36)
== END 2018-05-24 23:58 | disposition home or self-care (01) ==
LOC: ED 14:04
DX: S16.1XXA Strain of muscle, fascia and tendon at neck level, initial encounter (principal); S46.912A Strain of unspecified muscle, fascia and tendon at shoulder and upper arm level, left arm, initial encounter; M25.512 Pain in left shoulder; Z88.4 Allergy status to anesthetic agent; V89.2XXA Person injured in unspecified motor-vehicle accident, traffic, initial encounter; Y93.89 Activity, other specified; Y99.8 Other external cause status; Y92.410 Unspecified street and highway as the place of occurrence of the external cause
CPT/HCPCS: 72040; 73030; 73070; 81025; 96372; 99283; J1885